=== PATIENT | female | born 1970 ===

== ENCOUNTER 2017-10-11 14:48 | Emergency (ER) | payer MEDICAID ==
[2017-10-11] MEDS ORDERED: Albuterol 0.083% Inhal Sol (2.5 mg/3 mL) UD INH STA ×2 (16:33→18:40)
--- NOTE | 2017-10-11 16:36 | ED PDOC ---
HPI: Chest Pain Time Seen by Provider: 10/11/17 15:31 Chief Complaint (Nursing): Chest Pain History Per: Patient History/Exam Limitations: no limitations Onset/Duration Of Symptoms: Days (21), Gradual Current Symptoms Are (Timing): Still Present Severity: Mild Quality: Dull, Aching Associated Symptoms: denies: Nausea, Dyspnea, Diaphoresis, Syncope Modifying Factors: None Exacerbating Factors: None Alleviating Factors: None Additional History Per: Patient Additional Complaint(s): pt states sx ongoing for 3 weeks worse today, on steroids and antibiotics. Past Medical History Reviewed: Historical Data, Nursing Documentation, Vital Signs Vital Signs: Last Vital Signs Temp 98.3 F 10/11/17 14:59 Pulse 69 10/11/17 14:59 Resp 20 10/11/17 14:59 BP 114/57 L 10/11/17 14:59 Pulse Ox 93 L 10/11/17 16:37 - Medical History PMH: Asthma, Rheumatoid Arthritis - Surgical History Surgical History: Cholecystectomy - Family History Family History: States: Unknown Family Hx - Living Arrangements Living Arrangements: With Family - Social History Current smoker - smoking cessation education provided: No - Home Medications Home Medications: Ambulatory Orders Medication Instructions Recorded Albuterol HFA [Ventolin HFA 90 1 puff IH Q4 PRN #1 inhaler 10/25/15 mcg/actuation (8 g)] Prednisone 40 mg PO DAILY 4 Days tablet 10/25/15 Albuterol HFA [Ventolin HFA 90 2 puff IH [id number] PRN #60 puff 10/11/17 mcg/actuation (8 g)] Levofloxacin [Levaquin] 750 mg PO DAILY 9 Days #9 tablet 10/11/17 Methylprednisolone [Medrol Dose 4 mg PO DAILY #21 mg 10/11/17 Pack (21 tabs)] - Allergies Allergies/Adverse Reactions: Allergies Allergy/AdvReac Type Severity Reaction Status Date / Time Penicillins Allergy RASH Verified 10/25/15 19:42 Review of Systems ROS Statement: Except As Marked, All Systems Reviewed And Found Negative Constitutional: Negative for: Fever, Chills Cardiovascular: Positive for: Chest Pain. Negative for: Palpitations Respiratory: Negative for: Cough, Shortness of Breath Gastrointestinal: Negative for: Nausea, Vomiting, Abdominal Pain Musculoskeletal: Negative for: Neck Pain Skin: Negative for: Rash Neurological: Negative for: Weakness, Numbness Physical Exam - Reviewed Nursing Documentation Reviewed: Yes Vital Signs Reviewed: Yes - Physical Exam Appears: Positive for: Uncomfortable Head Exam: Positive for: ATRAUMATIC, NORMAL INSPECTION, NORMOCEPHALIC Eye Exam: Positive for: Normal appearance, EOMI, PERRL Neck: Positive for: Normal, Painless ROM, Supple Cardiovascular/Chest: Positive for: Regular Rate, Rhythm, Chest Non Tender. Negative for: Edema, Gallop, Murmur, Bradycardia, Tachycardia Respiratory: Positive for: Normal Breath Sounds. Negative for: Decreased Breath Sounds, Accessory Muscle Use, Crackles, Rales, Rhonchi, Stridor, Wheezing , Respiratory Distress Pulses-Radial (L): 2+ Pulses-Radial (R): 2+ Gastrointestinal/Abdominal: Positive for: Normal Exam, Bowel Sounds, Soft. Negative for: Tenderness Back: Positive for: Normal Inspection. Negative for: L CVA Tenderness, R CVA Tenderness Extremity: Positive for: Normal ROM. Negative for: Tenderness, Pedal Edema, Calf Tenderness, Deformity, Swelling Neurologic/Psych: Positive for: Alert, model maker plastic II-XII, Oriented. Negative for: Motor/Sensory Deficits - Laboratory Results Result Diagrams: 10/11/17 16:56 10/11/17 16:56 - ECG ECG: Positive for: Interpreted By Me ECG Rhythm: Positive for: Normal QRS, Normal ST Segment, Sinus Rhythm. Negative for: ST/T Changes Interpretation Of Abn EKG: rate of 76, no evidence of ischemia O2 Sat by Pulse Oximetry: 93 Pulse Ox Interpretation: Normal - Radiology X-Ray: Interpreted by Me X-Ray Interpretation: Infiltrates (small at left base, nml cardiac border and nml mediastinum) - Progress ED Course And Treament: sx markedly improved with treatment. small infiltrate. place on atibiotics give albuterol and steroids Re-evaluation Time: 18:42 Condition: Improved Disposition - Clinical Impression Clinical Impression: Pneumonia - Patient ED Disposition Is Patient to be Admitted: No Counseled Patient/Family Regarding: Studies Performed, Diagnosis, Need For Followup, Rx Given - Disposition Referrals: [facility] [Outside] (2 to 3 days) Disposition: Routine/Home Disposition Time: 18:45 Condition: GOOD Prescriptions: Albuterol HFA [Ventolin HFA 90 mcg/actuation (8 g)] 2 puff IH [id number] PRN #60 puff PRN Reason: sob Levofloxacin [Levaquin] 750 mg PO DAILY 9 Days #9 tablet Methylprednisolone [Medrol Dose Pack (21 tabs)] 4 mg PO DAILY #21 mg Instructions: Community Acquired Pneumonia (ED) Forms: [facility] (Latvian)
[2017-10-11] MEDS ORDERED: Albuterol 0.083% Inhal Sol (2.5 mg/3 mL) UD ONE ×2 (16:40→18:48)
[2017-10-11 17:14] LABS: ALB/GLOB RATIO 1.4 (1.0-2.1); ALT/SGPT 29 U/L (9-52); AST/SGOT 16 U/L (14-36); BLOOD UREA NITROGEN 14 mg/dl (7-17); GFR AFRICAN-AMERICAN > 60; GFR NON-AFRICAN AMERICAN > 60; LIPASE 243 U/L (23-300)
[2017-10-11 17:18] LABS: BASO % 0.4 % (0.0-2.0); EOS # 0.2 K/uL (0.0-0.7); EOS % 1.3 % (0.0-4.0); HEMOGLOBIN 12.1 g/dL (12.0-16.0); LYMPH # 3.1 K/uL (1.0-4.3); LYMPH % 25.7 % (20.0-40.0); MEAN CELL VOLUME 85.8 fl (81.0-99.0); MEAN CORPUSCULAR HEMOGLOBIN 27.7 pg (27.0-31.0); MEAN CORPUSCULAR HGB CONC 32.3 g/dL (33.0-37.0); MEAN PLATELET VOLUME 8.9 fl (7.2-11.7); MONO % 8.3 % (0.0-10.0); NEUT # 7.7 K/uL (1.8-7.0); NEUT % 64.3 % (50.0-75.0); NRBC % 0.1 % (0.0-0.0); RBC 4.38 Mil/uL (3.80-5.20); RED CELL DISTRIBUTION WIDTH 13.6 % (11.5-14.5); WHITE BLOOD COUNT 11.9 K/uL (4.8-10.8)
[2017-10-11 17:25] LABS: B-TYPE NATRIURETIC PEPTIDE 42.9 pg/ml (0-450)
[2017-10-11 18:35] LABS: PARTIAL THROMBOPLASTIN TIME 27.5 Seconds (25.6-37.1)
[2017-10-11] MEDS ORDERED: levoFLOXacin 750 MG TAB PO ONE (19:00)
[2017-10-11 19:13] VITALS: BP 132/70; PULSE 90; RESP 18; TEMP 99; O2SAT 99
[2017-10-11 21:44] LABS: INR 1.05 (0.92-1.08); PROTHROMBIN TIME 11.8 SECONDS (9.7-12.2)
--- NOTE | 2017-10-12 09:34 | RAD ---
PROCEDURE: CHEST RADIOGRAPH, 1 VIEW HISTORY: cp COMPARISON: Comparison chest dated 10/25/2015. FINDINGS: LUNGS: Clear. PLEURA: No pneumothorax or pleural fluid seen. CARDIOVASCULAR: Normal. OSSEOUS STRUCTURES: No significant abnormalities. VISUALIZED UPPER ABDOMEN: Normal. OTHER FINDINGS: None. IMPRESSION: No active disease.
== END 2017-10-11 19:14 | disposition home or self-care (01) ==
LOC: H.ER 14:48
DX: J18.9 Pneumonia, unspecified organism (principal); J45.909 Unspecified asthma, uncomplicated; M06.9 Rheumatoid arthritis, unspecified; Z88.0 Allergy status to penicillin
CPT/HCPCS: 71045; 80053; 81025; 83690; 83880; 84484; 85025; 85378; 85610; 85730; 87804; 94640; 96374; 99283; J2930

== ENCOUNTER 2018-09-12 16:02 | Emergency (ER) | payer MEDICAID ==
[2018-09-12] MEDS ORDERED: Albuterol-Ipratrop 3 mg / 0.5 (3 ml) UD INH STA (16:35)
--- NOTE | 2018-09-12 16:50 | ED PDOC ---
HPI: Influenza Time Seen by Provider: 09/12/18 16:15 Chief Complaint: Cough, Cold, Congestion Chief Complaint (Provider): Cough, Cold, Congestion History Per: Patient Exam Limitations: no limitations Onset/Duration Of Symptoms: Days (x14) Additional complaint(s):: Patient is a 47 y/o female with a PMHx of Lupus, Asthma, and rheumatoid arthritis who presents to the ED complaining of a dry cough, onset two weeks. The pt reports dry cough is associated with chest tightness consistent with asthma, sore throat, runny nose, as well as mild hand and foot swelling consistent with rheumatoid arthritis. The pt denies a fever. Of note,the pt took a dose of Azithromycin and Levaquin for relief of symptoms. PCP: Dr. Shaik Lubin Past Medical History Reviewed: Historical Data, Nursing Documentation, Vital Signs Vital Signs: Last Vital Signs Temp 98.8 F 09/12/18 16:12 Pulse 83 09/12/18 16:12 Resp 20 09/12/18 16:12 BP 130/81 09/12/18 16:12 Pulse Ox 99 09/12/18 16:12 GARETT Report Viewed: Yes - Medical History PMH: Asthma, Rheumatoid Arthritis Other PMH: Lupus - Surgical History Surgical History: Cholecystectomy - Family History Family History: States: No Known Family Hx - Social History Current smoker - smoking cessation education provided: No Alcohol: None Drugs: Denies - Home Medications Home Medications: Ambulatory Orders Medication Instructions Recorded Albuterol HFA [Ventolin HFA 90 1 puff IH Q4 PRN #1 inhaler 10/25/15 mcg/actuation (8 g)] Prednisone 40 mg PO DAILY 4 Days tablet 10/25/15 Albuterol HFA [Ventolin HFA 90 2 puff IH [id number] PRN #60 puff 10/11/17 mcg/actuation (8 g)] Levofloxacin [Levaquin] 750 mg PO DAILY 9 Days #9 tablet 10/11/17 Methylprednisolone [Medrol Dose 4 mg PO DAILY #21 mg 10/11/17 Pack (21 tabs)] Montelukast [Singulair] 10 mg PO DAILY #30 tab 09/12/18 - Allergies Allergies/Adverse Reactions: Allergies Allergy/AdvReac Type Severity Reaction Status Date / Time Penicillins Allergy RASH Verified 12/29/18 16:11 Review of Systems ROS Statement: Except As Marked, All Systems Reviewed And Found Negative (as per HPI) Constitutional: Negative for: Fever ENT: Positive for: Nose Discharge, Throat Pain (Sore) Cardiovascular: Positive for: Other (Chest Tightness) Respiratory: Positive for: Cough (Dry) Musculoskeletal: Positive for: Hand Pain (Mild Swelling), Foot Pain (Mild Swelling) Physical Exam - Reviewed Nursing Documentation Reviewed: Yes Vital Signs Reviewed: Yes - Physical Exam Appears: Positive for: Non-toxic, No Acute Distress Head Exam: Positive for: ATRAUMATIC, NORMOCEPHALIC Skin: Positive for: Warm, Dry Eye Exam: Positive for: EOMI, PERRL ENT: Negative for: Pharyngeal Erythema, Tonsillar Exudate Neck: Positive for: Painless ROM, Supple Cardiovascular/Chest: Positive for: Regular Rate, Rhythm. Negative for: Murmur Respiratory: Positive for: Wheezing (Occasional Expiratory). Negative for: Accessory Muscle Use, Rales, Rhonchi, Respiratory Distress Gastrointestinal/Abdominal: Positive for: Soft. Negative for: Tenderness Back: Positive for: Normal Inspection. Negative for: Muscle Spasm Extremity: Positive for: Pedal Edema (Very Trace). Negative for: Calf Tenderness Lymphatic: Negative for: Adenopathy Neurologic/Psych: Positive for: Alert. Negative for: Motor/Sensory Deficits Medical Decision Making Medical Decision Making: Time:1631 Impression: Asthma Exacerbation and Cough DDx includes but not limited to Bronchitis, PNA, and CHF. Plan: -EKG -BNP -CMP -Magnesium Stat -Phosphorus Stat -Troponin I -Urine -CBC -CXR (Two Views) Scribe Attestation: Documented by Ashu Patton, acting as a scribe for Billie Cruz MD. Provider Scribe Attestation: All medical record entries made by the Scribe were at my direction and personally dictated by me. I have reviewed the chart and agree that the record accurately reflects my personal performance of the history, physical exam, medical decision making, and the department course for this patient. I have also personally directed, reviewed, and agree with the discharge instructions and disposition. Time: 1815 -- XR demonstrates no infiltration, effusion and no acute findings. -- Labs with no clinically significant abnormality. Discussed with patient findings. Will add singulair to the patient's medications. Advised follow up with Dr. Lubin. Reasons to return to the ER reviewed. Scribe Attestation: Documented by Cadence Weeks, acting as a scribe for Billie Cruz MD. Provider Scribe Attestation: All medical record entries made by the Scribe were at my direction and personally dictated by me. I have reviewed the chart and agree that the record accurately reflects my personal performance of the history, physical exam, medical decision making, and the department course for this patient. I have also personally directed, reviewed, and agree with the discharge instructions and disposition. - Laboratory Results Result Diagrams: 09/12/18 17:15 09/12/18 17:15 - ECG O2 Sat by Pulse Oximetry: 99 (RA) Pulse Ox Interpretation: Normal Disposition - Clinical Impression Clinical Impression: Bronchospasm, Asthma exacerbation - Disposition Referrals: Shaik Lubin MD [Family Provider] - Ramírez Doyle MD [Staff Provider] - Disposition: Routine/Home Disposition Time: 18:00 Condition: STABLE Additional Instructions: VISITA HOUGH DOCTOR Y SPECIALISTA DE PULMON A CHEQAR DE NUEVO CHRISTOPHER TODOS AKASH [facility] DIARIO CHRISTOPHER TYLENOL O MOTRIN PARA DUELE Prescriptions: Montelukast [Singulair] 10 mg PO DAILY #30 tab Instructions: Asthma, Adult (DC), Asthma Action Plan, Medicines for Asthma Print Language: ESTONIAN
[2018-09-12] MEDS ORDERED: Albuterol-Ipratrop 3 mg / 0.5 (3 ml) UD ONE (16:54)
[2018-09-12 17:32] LABS: ALB/GLOB RATIO 1.4 (1.0-2.1); ALBUMIN 4.3 g/dL (3.5-5.0); ALT/SGPT 27 U/L (9-52); AST/SGOT 25 U/L (14-36); BLOOD UREA NITROGEN 17 mg/dl (7-17); CALCIUM 9.1 mg/dL (8.4-10.2); GFR NON-AFRICAN AMERICAN > 60
[2018-09-12 17:38] LABS: BASO # 0.1 K/uL (0.0-0.2); BASO % 0.6 % (0.0-2.0); EOS # 0.1 K/uL (0.0-0.7); EOS % 0.9 % (0.0-4.0); HEMOGLOBIN 11.9 g/dL (12.0-16.0); LYMPH % 22.2 % (20.0-40.0); MEAN CELL VOLUME 86.8 fl (81.0-99.0); MEAN CORPUSCULAR HEMOGLOBIN 28.1 pg (27.0-31.0); MEAN CORPUSCULAR HGB CONC 32.4 g/dL (33.0-37.0); MEAN PLATELET VOLUME 9.1 fl (7.2-11.7); MONO # 1.1 K/uL (0.0-0.8); MONO % 8.2 % (0.0-10.0); NEUT # 9.3 K/uL (1.8-7.0); NEUT % 68.1 % (50.0-75.0); NRBC % 0.1 % (0.0-0.0); RBC 4.22 Mil/uL (3.80-5.20); RED CELL DISTRIBUTION WIDTH 13.5 % (11.5-14.5); WHITE BLOOD COUNT 13.7 K/uL (4.8-10.8)
[2018-09-12 17:45] LABS: B-TYPE NATRIURETIC PEPTIDE 23.7 pg/ml (0-450)
--- NOTE | 2018-09-12 18:20 | RAD ---
Date of service: 09/12/2018 HISTORY: sob COMPARISON: Comparison chest dated 10/11/2017. TECHNIQUE: Chest PA and lateral FINDINGS: LUNGS: Slight increased-coarsened interstitial markings in part due to poor inspiration low lung volumes however rule out the sequela of reactive/inflammatory airway disease or viral illness.. PLEURA: No significant pleural effusion identified. No pneumothorax apparent. CARDIOVASCULAR: No significant aortic atherosclerotic calcification present. Mild cardiomegaly.. No pulmonary vascular congestion. OSSEOUS STRUCTURES: No significant abnormalities. VISUALIZED UPPER ABDOMEN: Normal. OTHER FINDINGS: None. IMPRESSION: Slight increased-coarsened interstitial markings in part due to poor inspiration low lung volumes however rule out the sequela of reactive/inflammatory airway disease or viral illness..
[2018-09-12 19:01] VITALS: BP 120/78; PULSE 78; RESP 19; TEMP 7; O2SAT 98
--- NOTE | 2018-09-13 20:09 | CARD ---
APPROVED REPORT Date of service: 09/12/2018 EKG Measurement Heart [id number] <Conclusion> Normal sinus rhythm Normal ECG
== END 2018-09-12 19:02 | disposition home or self-care (01) ==
LOC: H.ER 16:02
DX: J98.01 Acute bronchospasm (principal); J45.901 Unspecified asthma with (acute) exacerbation; M32.9 Systemic lupus erythematosus, unspecified; Z88.0 Allergy status to penicillin